=== PATIENT | female | born 1960 | race Two or more races ===

== ENCOUNTER 2021-03-25 22:39 | Emergency (ER) | payer SELFPAY ==
[~2021-03-25] VITALS: Ht 167.6 cm; Wt 54.0 kg
[2021-03-25] MEDS ORDERED: KETOROLAC 60MG/2ML VIAL IM ONE (23:15)
[2021-03-26] MEDS ORDERED: FENTANYL CITRATE/PF 50MCG/ML 2ML VIAL IV ONE (01:30)
[2021-03-26] MEDS ORDERED: ACET-2708 MT (04:06)
[2021-03-26] MEDS ORDERED: IBUP-2028 MT (04:10)
[2021-03-26] MEDS ORDERED: MORP15TA67 MT ×4 (05:08→07:03)
[2021-03-26] MEDS ORDERED: HYDROCODONE/ACETAMINOPHEN 5/325MG TABLET PO ONE (05:15)
[2021-03-26 05:31] VITALS: BP 140/70
== END 2021-03-26 05:36 | disposition home or self-care (01) ==
LOC: ER 22:39
DX: S82.292A Other fracture of shaft of left tibia, initial encounter for closed fracture (principal); X58.XXXA Exposure to other specified factors, initial encounter; Y93.89 Activity, other specified; Y92.89 Other specified places as the place of occurrence of the external cause; Y99.8 Other external cause status; Z88.0 Allergy status to penicillin
CPT/HCPCS: 29505; 73590; 73610; 73630; 82962; 96372; 96374; 99285; J1885; J3010